=== PATIENT | female | born 1970 ===

== ENCOUNTER 2024-07-02 15:30 | Inpatient (IN) | payer MEDICARE ==
[~2024-07-02] VITALS: Ht 157.5 cm; Wt 122.9 kg
[2024-07-02] MEDS ORDERED: Melatonin 3 MG Tab PO PRN (20:20)
[2024-07-02] MEDS ORDERED: TraZODone HCl 50 MG Tab PO PRN (20:20)
[2024-07-02] MEDS ORDERED: Polyethylene Glycol 3350 17 gm PO PRN (20:20)
[2024-07-02] MEDS ORDERED: OLANZapine ODT 10 MG Tab MM PRN (20:20)
[2024-07-02] MEDS ORDERED: Ondansetron 4 MG SoluTab MM PRN (20:20)
[2024-07-02] MEDS ORDERED: Ibuprofen 600 MG Tab PO PRN (20:25)
[2024-07-02] MEDS ORDERED: DiphenhydrAMINE HCl 50 MG Cap PO PRN (20:25)
[2024-07-02] MEDS ORDERED: LORazepam 2 MG Tab PO PRN (20:25)
[2024-07-02] MEDS ORDERED: FLU VACC TS2024-25(6MOS UP)/PF 45 MCG/0.5 ML SYRINGE IM SCH (20:25)
[2024-07-02] MEDS ORDERED: Aluminum Hydroxide 320MG/5ML 473 ML PO PRN (20:25)
[2024-07-02] MEDS ORDERED: HydrOXYzine Pamoate 50 MG Cap PO PRN (20:25)
[2024-07-02] MEDS ORDERED: Acetaminophen 325 MG TABLET PO PRN (20:25)
[2024-07-02] MEDS ORDERED: LORazepam 2 MG/ML 1ML Injection IM PRN (20:25)
[2024-07-02] MEDS ORDERED: Calcium Carbonate 500 MG Tab Chew PO PRN (20:30)
[2024-07-02] MEDS ORDERED: DiphenhydrAMINE HCl 50 MG/ML 1ML Vial IV PRN (20:30)
[2024-07-02] MEDS ORDERED: LamoTRIgine 100 MG Tab PO SCH (21:00)
[2024-07-02] MEDS ORDERED: OLANZapine 10 MG Tab PO SCH ×2 (21:00)
[2024-07-02 22:28] VITALS: BP 128/91
--- NOTE | 2024-07-02 23:05 | NUR ---
ADMIT NOTE PT PRESENTED TO [facility] AT 1948, ACCOMPANIED BY SECURED TRANSPORT AND SECURITY. BELONGINGS LIST COMPLETED BY MHA, SKIN ASSESSMENT DONE AND PT CHANGED INTO UNIT SCRUBS. PT IS DIFFICULT TO ASSESS. HER RESPONSES TO QUESTIONS ARE INAPPROPRIATE AT TIMES, HOWEVER SHE DOES DENY ANY SI, HI OR HALLUCINATIONS. WHEN ASKED WHY SHE WAS HERE PT STATED "I LIKE TO COLOR AND DRAW. I LIVE ON A FARM AND LIKE TO DO HAY WITH MY FAMILY." SHE IS ORIENTED TO SELF. SHE IS CHILD LIKE AT TIMES, AND BECOMES TEARFUL ON AND OFF, BUT IS EASILY REDIRECTED. PT UNSURE OF HER MEDICATIONS AND IF SHE HAS ANY ALLERGIES. SHE AMBULATES WITHOUT DIFFICULTY. SHE WEARS ATTENDS, BUT IS INDEPENDENTLY ABLE TO USE THE RESTROOM. PT HAS A STUFFED ANIMAL THAT SHE CARRIES, BASE FILLER OPERATOR GAVE THE OK FOR THE PT TO KEEP WITH HER. PT WAS OREINTED TO THE UNIT. SHE WAS COMPLIANT WITH MEDICATIONS. SHE WAS HAVING DIFFICULTY SLEEPING AND RECEIVED MELATONIN PER PRN ORDERS. MASS SCORE OF 3 AND PT RECEIVED VISTARIL. Q15 MINUTE CHECKS TO CONTINUE PER UNIT PROTOCOL.
--- NOTE | 2024-07-02 23:14 | NUR ---
PATIENT HAS ALLERGIES LISTED DIPHENHYDRAMINE AND AMOXICILLIM WITH A RESULTING RASH. PATIENT UNABLE TO DESCRIBE AT THIS TIME
--- NOTE | 2024-07-03 04:26 | NUR ---
SHIFT SUMMARY UPDATE AFTER RECEIVING PRN MEDICATIONS LAST NIGHT, PT HAS BEEN LAYING IN BED, EYES CLOSED AND HAS APPEARED TO BE SLEEPING COMFORTABLY WITH RESPIRATIONS EVEN AND UNLABORED. WILL CONTINUE Q15 MINUTE CHECKS PER UNIT PROTOCOL.
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
[2024-07-03 08:09] VITALS: BP 128/88
[2024-07-03] MEDS ORDERED: LamoTRIgine 25 MG Tab PO SCH (09:00)
[2024-07-03] MEDS ORDERED: Multivitamins 1 Tab PO SCH (09:00)
--- NOTE | 2024-07-03 14:24 | NUR ---
WHEN THE PT WAS ASKED ABOUT SI SHE ENDORSED IT THEN LATER SHE WAS ASKED AGAIN AND REPLIED, "A POSITIVE GOUL...LEARN TO DRIVE A CAR." SHE ALSO ENDORSED AUDITORY HALUCINATIONS AND SAID THE VOICES SAID, "HELLO." SHE DENIED VISUAL HALUCINATIONS AND ANXIETY. PT REPORTED THAT SHE HAD PAIN IN HER ELBOW BUT COULDN'T RATE IT. SHE SAID, "I MISS MY LITTLE SISTER." WHEN ASKED WHERE HER SISTER IS SHE REPLIED, "SHE'[place] THE [place]." PT HAS BEEN ATTENDING GROUPS AND HAS BEEN PARTICIPATING, SOMETIMES SHE ANSWERS QUESTIONS CORRECTLY AND SOMETIMES SHE IS TANGENTIAL. SHE SHOWERED THIS MORNING AND HAS BEEN USING THE RESTROOM ON HER OWN.
[2024-07-03 21:15] VITALS: BP 139/97
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
[2024-07-04 08:09] VITALS: BP 127/116
[2024-07-04 11:38] VITALS: BP 125/83
--- NOTE | 2024-07-04 14:53 | NUR ---
PT ALERT TO SELF. DE SI, HI, HALLUCINATIONS. PT STATES " I LIKE TO HELP PEOPLE." SHE FEELS HAPPY. PT IS CHILD LIKE BEHAVIOR. HER ANSWERS TO QUESTIONS ARE REVERTED BACK TO HER CHILDHOOD AND RASTAFARIAN. SHE SAYS THAT SHE WANTS TO TEACH HER DAUGHTER TO DRIVE. 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 TANGENTIAL IN SUBJECTS. DOES NOT STAY FOCUSED ON SUBJECT OF TOPIC. PT HAS PAIN IN CHEST MUSCLES FROM BIG BREAST. PAIN MANAGED WITH IBUPROFEN. MINGLES WELL WITH OTHERS. PARTICIPATES IN GROUPS. WILL CONTINUE TO MONITOR
--- NOTE | 2024-07-04 18:06 | NUR ---
SHIFT SUMMARY: PT ALERT TO SELF. PLEASANT AND COOPERATIVE. PARTICIPATED IN GROUPS TODAY. ATE MEALS. HAS CHEST MUSCLE PAIN FROM HEAVY BREAST. MEDICATED WITH IBUPROFEN AND WAS HELPFUL. SHE SAYS SHE "LIKES TO HELP PEOPLE." ENJOYS LIVING WITH HER FAMILY ON A FARM AND PARTICIPATES IN MORMONISM. PLEASE SEE PREVIOUS NOTES. B/P THIS AM WAS 127/112. IT WAS RETAKEN AND WAS 125/83. HAS NOT HAD ANY PROBLEMS WITH INCONTINCEY TODAY. PT IS CHILD LIKE IN [place]. IS IN A HAPPY MOOD. MINGLES WELL WITH OTHERS. WILL CONTINUE TO MONITOR.
[2024-07-04 23:30] VITALS: BP 103/92
--- NOTE | 2024-07-05 03:19 | NUR ---
SHIFT SUMMARY PT PRESENT IN GROUP ROOM AT THE BEGINNING OF MY SHIFT. SHE IS PLEASANT AND COOPERATIVE WT CARE. SHE IS ORIENTED TO SELF. SHE HAS NOT HAD ANY OBSERVED CRYING EPISODES DURING MY SHIFT. SHE DENIES ANY SI, HI OR HALLUCINATIONS. SHE HAS CHILD-LIKE BEHAVIOR. MOOD SEEMS TO BE IMPROVED SINCE MY PRIOR SHIFT. SHE HAD EVENING SNACK AND WATCHED TV WITH PEERS. SHE WAS COMPLIANT WITH MEDICATIONS. SHE PERFORMED ADL'S INDEPENDENTLY. SHE HAS APPEARED TO BE SLEEPING SINCE AROUND 2114 WITH RESPIRATIONS CONFIRMED. Q15 MINUTE CHECKS TO CONTINUE PER UNIT PROTOCOL.
[2024-07-05 07:44] VITALS: BP 131/81
--- NOTE | 2024-07-05 16:36 | NUR ---
SHIFT SUMMARY PT HAS SPENT THE DAY IN THE MILIEU, COOPERATIVE AND ENGAGING BUT NOT VERBAL TO THIS RN, VERY LITTLE INTERACTION VERBALLY. NO MEDICATION CHANGES TODAY, NO NEW ORDERS FROM PROVIDER. SHE DID NAP FOR APPROX 1 1/2 HR THIS AFTERNOON. MHA STATED PT NEEDED VERY DIRECT Q'ING THIS MORNING DURING SHOWER TIME. PT DID MANAGE TO VERBALLY MINERVA SI/HI/AVH
[2024-07-05 23:19] VITALS: BP 132/79
--- NOTE | 2024-07-06 01:28 | NUR ---
Shift Assessment Note Received Pt at 1900. Pt denied SI/HI/AVH. Denied depression and anxiety. Mood and affect bright. Verbalized tangential/flight of thoughts. Behaved in regressed fashion. Med compliant; received PRN (see MAR) for sleeplessness. Denied pain and physical complaints. Participated in evening wrap-up group to the best of her ability. Pt will comply with all requests, but has little to no understanding of why. She required direct cues to complete ADLs; had BM after snack. Retired to bed without complications. Plan: Provide safe, therapeutic environment in which to work on TP goals. Continue discharge planning.
--- NOTE | 2024-07-06 04:24 | NUR ---
Shift Summary Pt was in the dayroom watching tv at the start of shift. She participated in the assessment, denying SI/HI/AVH, but verbalized flight of thoughts/tangential thinking. Med compliant, receiving PRN (see MAR) for sleeplessness, but was unable to state why she was taking specific meds. She participated in evening wrap-up group to the best of her ability. Ate 100% of snack. Pt required frequent, direct cues to complete ADLs. Demonstrated appropriate boundaries with peers and staff. After med pass, she watched tv until requesting permission to retire for the evening. She consistently demonstrated regressed behaviors. Rested throughout the night without complication.
[2024-07-06 07:57] VITALS: BP 130/91
--- NOTE | 2024-07-06 17:01 | NUR ---
SHIFT CHANGE PT HAS BEEN UP SINCE THIS RN ASSUMED CARE AT THE START OF THIS SHIFT. SHE HAS PARTICIPATED IN ALL MEALS THAT HAVE BEEN PROVIDED AND PARTICIPATED IN ALL GROUP ACTIVITIES. SHE IS IN THE GROUP ROOM WATCHING TV AT THIS TIME, PENDING DINNER MEAL ARRIVING. SHE SHOWS IMPROVEMENT SINCE YESTERDAY WITH TALKING MUCH MORE TO THIS RN AND OTHER PATIENTS. PT HAS COMPLAINED OF HER L ANKLE HURTING FROM SITTING FUNNY IN THE TV ROOM, PROVIDED HOT PACK FOR THE AREA WHICH SHE STATED IMPROVED PAIN LEVEL. PT DENIES SI/HI/AVH THROUGHOUT THE DAY, Q15 PT CHECKS TO ENSURE PT SAFETY.
[2024-07-06 22:06] VITALS: BP 133/79
--- NOTE | 2024-07-06 22:59 | NUR ---
Shift Assessment Note Receiived Pt at 1900. Pt denied Si/HI/AVH. Denied depression and anxiety. Mood happy, affect bright. Demonstrated improved thought process from the previous evening in that she was mostly able to participate in a focused, simple conversation. She was able to fully complete evening ADLs independently (staff verified.) Med compliant; received PRN (see MAR) for sleeplessness. Participated in evening wrap-up group to the best of her ability; ate 100% of snack. Interacted appropriately with peers and staff. After med pass, she retired to bed for the evening without complications. Plan: Continue to provide safe, therapeutic environment in which to work on TP goals. Continue discharge planning.
--- NOTE | 2024-07-07 04:50 | NUR ---
Shift Summary Pt was in the dayroom watching tv at the start of shift. She participated fully in assessment (denied SI/HI/AVH.) Med compliant, receiving PRN (see MAR) for sleeplessness. Participated in evening wrap-up group to the best of her ability; ate 100% of snack. Throughout the evening she was able to independently complete ADLs (confirmed by staff.) She very briefly watched tv after snack, but retired to bed shortly thereafter. She awoke once during the night to visit the restroom, but otherwise rested for the duration of the night without complications.
[2024-07-07 08:15] VITALS: BP 136/73
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
[2024-07-07 20:36] VITALS: BP 117/95
--- NOTE | 2024-07-08 06:04 | NUR ---
NOC SHIFT SUMMARY Pt was watching movie in tv room with peers at start of shift. Pt reported positive mood and initiated conversation topics with RN. Evident that pt had been friendly/social throughout the day with peers as well. Bright affect. While her statements were somewhat disorganized and seemingly random, her sentences were individually logical/coherent. Verbalizes excitement about plan to discharge Monday (per pt) and wanted to start preparing (i.e. place phone calls, set up transportation, etc). Reinforced that staff would assist her during the day prior to discharge, but nothing needed to be accomplished overnight on a Monday. Pleasant throughout shift. Took PRNs for sleep (trazodone, melatonin) with HS meds after evening snack. Went to bed shortly after receiving meds. Awoke around 0600, but denied needs. Maintaining ADLs independently without cues.
[2024-07-08 08:37] VITALS: BP 133/82
--- NOTE | 2024-07-08 15:25 | NUR ---
Upon receiving a referral for spiritual care, I visited the patient. She tells me about the stressors she is experiencing, about her family and their family history and about her strong Baptism haley (a Born again Anabaptist). She talks about many of her healing activities, hobbies and benevolent deeds. She moves from one topic to the next without much transition but she does remember to come back to her point. Some of the tangents are not in anyway connected to the direction of the conversation but she flows like it should all fit. She is very pleasant and is redirectable and receives encouragement and insights well. I provided therapeutic listening and prayer with a good results. Patient displayed evidence of greater peace. Spiritual care will continue to remain available to patient and family.
--- NOTE | 2024-07-08 17:31 | NUR ---
SHIFT SUMMARY PT HAS BEEN UP SINCE START OF THIS SHIFT AND HAS PARTICIPATED IN ALL GROUPS AND MEALS, SHE IS COMPLIANT WITH MEDICATIONS, ALL SELF CARE IS WITHOUT Q'ING, SHE STATES SHE IS GOING HOME TOMORROW, DR GREWAL TOLD HER SHE COULD POSIBILY D/C TOMORROW. HER DC PLAN HAS NOT BEEN STARTED OF THIS NOTE. PLEASE SEE PT'S NEXT NOTE WITH BROTHERS INFORMATION. PT HAS DENIED SI/HI/AVH THROUGHOUT THE DAY, Q15 MIN VISUAL CHECKS HAVE BEEN PERFORMED ALL SHIFT TO ENSURE PT'S SAFETY
--- NOTE | 2024-07-08 17:42 | NUR ---
""""""DC PLANNING INFO WITH BROTHER, CHELLE""""""" CHELLE, HE CALLED TODAY TO FIND OUT WHAT IS GOING ON WITH PT'S DC, SHE HAS CALLED HIM EVERYDAY AND HAS STATED SHE WILL BE HOME TOMORROW. CHELLE STATES LAST TIME SHE WAS DC FROM INPATIENT OUT OF [facility], THEY SENT HER HOME VIA [facility]AX[facility] TO [place] WITHOUT NOTIFYING HIM AND SHE SAT AT THE FRONT DOOR FOR HOURS UNTIL HE RETURNED. CHELLE IS DEALING WITH SOME MEDICAL ISSUES AND HAS APPT'S BOTH 07/09 & 07/10 AND WOULD LIKE TO COORDINATE PT'S ARRIVAL HOME. HE STATES SHE CANNOT BE AT THE HOME WITHOUT HIM THERE. HE STATES ON 07/09 HE WILL BE HOME MID-LATE AFTERNOON. ON 07/10 HE WILL BE HOME UNTIL AROUND 11-12, WILL BE GONE THE REST OF THE DAY.
[2024-07-08 21:03] VITALS: BP 119/71
--- NOTE | 2024-07-09 04:27 | NUR ---
SHIFT SUMMARY PT PRESENT IN GROUP ROOM AT START OF SHIFT, WATCHING TV, LAUGHING AND INTERACTIVE WITH PEERS AND STAFF. PT DENIED ANY SI, HI OR AVH. SHE IS CONVERSANT, INITIATES APPROPRIATE CONVERSATION. SHE RECEIVED IBUPROFEN FOR BACK PAIN WITH GOOD RELIEF. SHE REPORTED HER LEGS WERE SWOLLLEN. HER LOWER EXTREMITIES HAVE NON-PITTING EDEMA. MHA WEIGHED PT. AND SHE WAS NOTED TO HAVE A 15 POUND WEIGHT GAIN SINCE ADMISSION. WILL INFORM DAY SHIFT OF INCREASE IN WEIGHT AND EDEMA. PROVIDED PT WITH ADDITIONAL PILLOW AND INSTRUCTED TO TRY TO ELEVATE HER LE'S WHILE SLEEPING. PT REQUESTED AND RECEIVED MELATONIN AND TRAZODONE TO ASSIST WITH SLEEPING. SHE WAS COMPLIANT WITH MEDICATIONS AND IS ABLE TO MAKE HER NEEDS KNOWN. PT HAS APPEARED TO BE SLEEPING THROUGHOUT THE NIGHT, WITH RESPIRATIONS CONFIRMED. Q15 MINUTE CHECKS TO CONTINUE PER UNIT PROTOCOL.
[2024-07-09 08:24] LABS: CHOL/HDL RATIO 3.2; Cholesterol 159 mg/dL (50-200); HDL Cholesterol 50 mg/dL (>39); LDL/HDL RATIO 1.8; Low Density Lipoprotein Chol 88 mg/dL (0-110); Triglycerides 104 mg/dL (30-160); Very Low Density Lipoprot Chol 21 mg/dL (6-32)
[2024-07-09 12:25] VITALS: BP 115/72
--- NOTE | 2024-07-09 18:00 | NUR ---
SHIFT SUMMARY A/O 3-4; PLEASANT AND COOPERATIVE WITH CARE. SHE DENIES SI, HI, OR ANY HALLUCINATIONS. SHE ATTENDS ALL GROUPS AND MEALS AND INTERACTS WITH PEERS OFTEN. SHE HAS SOME +1 NON PITTING EDEMA TO IN HER BLE'S. PT ENCOURAGED TO ELEVATE HER LEGS. THE PLAN IS FOR HER TO POSSIBLY DISCHARGE HOME ON 07/11/24. THIS RN CALLED PT'S BROTHER TO GIVE UPDATE ON DISCHARGE PLAN BUT UNABLE TO REACH AT THIS TIME. VOICEMAIL WAS LEFT WITH A REQUEST TO CALL BACK.
[2024-07-09 20:51] VITALS: BP 119/84
--- NOTE | 2024-07-10 04:16 | NUR ---
SHIFT SUMMARY PT IN GROUP ROOM WITH PEERS AND STAFF AT START OF SHIFT. SHE IS INTERACTIVE, PLEASANT AND CHEERFUL. SHE STATES SHE IS FEELING "GREAT". SHE DENIES ANY SI, HI OR AVH. PT NOTED TO HAVE TRACE EDEMA TO LE'S WHICH IS IMPROVED SINCE PREVIOUS SHIFT. SHE RECEIVED IBUPROFEN FOR A HEADACHE AND MELATONIN AND TRAZODONE TO ASSIST WITH SLEEPING. PT HAS APPEARED TO BE SLEEPING THROUGHOUT THE NIGHT WITH RESPIRATIONS CONFIRMED. Q15 MINUTE CHECKS TO CONTINUE PER UNIT PROTOCOL.
--- NOTE | 2024-07-10 11:44 | NUR ---
Pt Discharge Information Pt is all set up for Discharge appointments 07/12,07/15,07/16/2024 with Medication Management with Dr Blood, Counseling with Indira Martínez, and Post Hopsital Check in with die out worker with notes on if Transportation is an issue patient can call and do a phone check in. Information on how to make the call is in Discharge paperwork. Ride is being requested and will have confirmation within the end of the day.
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
[2024-07-10 22:37] VITALS: BP 105/58
--- NOTE | 2024-07-11 04:41 | NUR ---
SHIFT SUMMARY PT PRESENT IN GROUP ROOM AT START OF SHIFT. PT INTERACTS WITH STAFF AND PEERS. SHE DENIES ANY SI, HI OR AVH. SHE IS CHEERFUL AND EXCITED ABOUT BEING DISCHARGED. SHE HAD EVENING SNACK AND WAS COMPLIANT WITH HER MEDS. SHE REQUESTED AND RECEIVED MELATONIN AND TRAZODONE. SHE IS ABLE TO PERFORM ADL'S INDEPENDENTLY. SHE WENT TO BED AROUND 2100 AND HAS APPEARED TO BE SLEEPING THROUGHOUT THE NIGHT WITH RESPIRATIONS CONFIRMED. Q15 MINUTE CHECKS TO CONTINUE PER UNIT PROTOCOL.
[2024-07-11 07:48] VITALS: BP 111/77
--- NOTE | 2024-07-11 09:11 | NUR ---
PT DENIES SI,HI AND AVH. IS VERY HAPPY TO BE GOING HOME TODAY. SHE TALKED ABOUT EVERYONE AT HOME AND THE THINGS SHE WILL BE DOING WHEN SHE RETURNS. WILL CONTINUE TO MONITOR
[2024-07-11] MEDS ORDERED: LAMO100 PO (10:06)
[2024-07-11] MEDS ORDERED: OLAN10 PO (10:07)
[2024-07-11] MEDS ORDERED: TRAZ50 PO (10:08)
--- NOTE | 2024-07-11 13:43 | NUR ---
DISCHARGE NOTE: PT A/O X4 . BROTHER CHELLE HERE TO SHARE DISCHARGE INSTRUCTIONS WITH. BELONGINGS RETURNED. GIVEN DISCHARGE INSTRUCTIONS, PRESCRIPTIONS CALLED TO [facility] IN [facility], [place]. SPOKE TO PAHAMICIST "ZIGGY". WENT OVER PRESCIPTIONS AND DOSAGE. DECLINED OFFER OF NICOTINE CESSATION COUNSELING. EDUCATION PROVIDE FOR MEDICATIONS AND FOR FOLLOW UP APPTS. PT AMBULATED OUT TO CHELLE'S CAR WITHOUT DIFFICULTY. PT OUT AT [id number]
== END 2024-07-11 13:49 | disposition home or self-care (01) | DRG 885 ==
LOC: BHU 15:30
PROVIDERS: Student in an Organized Health Care Education/Training Program; ADMIT Psychiatry & Neurology Psychiatry
DX: F25.0 Schizoaffective disorder, bipolar type (principal); F79 Unspecified intellectual disabilities; Z88.1 Allergy status to other antibiotic agents; Z88.8 Allergy status to other drugs, medicaments and biological substances
CPT/HCPCS: 80061; 83036; A9270